=== PATIENT | female | born 1965 | race African-American/Black ===

== ENCOUNTER → 2017-05-28 | Outpatient (CLI) | payer MEDICARE, OTHER ==
[~2017-05-28] MED LIST: AMOXICILLIN500 M1 PO; ASPIR-TRIN325 MG PO; BAYER ASPIRIN325 M1 PO; CLARITIN10 M3; FENOFIBRATE145 M1 PO; HARD NAILS2500 MCG PO; HYDROCODON-ACE1 EAC9 PO; LINZESS145 MCG PO; LINZESS290 MCG PO; LOPRESSOR PO; NEXIUM PO; SIMVASTATIN20 MG PO; VITAMIN C1000 M2 PO; VITAMIN D31000 UNI1; ZOCOR PO; [UNRECOGNIZED DRUG - OTHER] PO
[2017-05-28 11:19] LABS: URINE APPEARANCE CLEAR; URINE BILIRUBIN NEG (NEG); URINE BLOOD NEG (NEG); URINE COLOR DK YELLOW; URINE GLUCOSE NEG (NEG); URINE KETONE TRACE (NEG); URINE LEUKOCYTE ESTERASE TRACE (NEG); URINE NITRATE NEG (NEG); URINE PROTEIN NEG (NEG)
[2017-05-28 11:22] LABS: URINE BACTERIA AUWI NEG (NEGATIVE)
[2017-05-28 11:25] LABS: HEMATOCRIT 36.5 % (35.0-45.0); HEMOGLOBIN 11.4 gm/dL (12.0-16.0); MEAN CELL VOLUME 75.8 FL (83-96); MEAN CORPUSCULAR HEMOGLOBIN 23.6 PG (28-34); MEAN CORPUSCULAR HGB CONC 31.2 g/dL (30-36); MEAN PLATELET VOLUME 10.3 FL (6.5-11.5); RED BLOOD COUNT 4.82 X10e (3.90-5.30)
[2017-05-28 11:31] LABS: CULTURE INDICATED? NO; URINE SOURCE CLEAN CATCH
[2017-05-28 11:33] LABS: URINE SQUAMOUS EPITHELIAL CELL MODERATE /[HPF]
[2017-05-28 11:46] LABS: BUN/CREATININE RATIO 17.5; CALCIUM SERUM 9.8 mg/dL (8.4-10.2); CREATININE SERUM 0.4 mg/dL (0.6-1.4); GLOM FILT RATE Estimated 140.8 mL/min (>60); POTASSIUM 3.5 mmol/L (3.5-5.1)
== END | disposition home or self-care (01) ==
LOC: CAMB 09:39
PROVIDERS: Orthopaedic Surgery
DX: Z01.812 Encounter for preprocedural laboratory examination (principal); S83.206A Unspecified tear of unspecified meniscus, current injury, right knee, initial encounter
CPT/HCPCS: 36415; 80048; 81003; 85027

== ENCOUNTER → 2017-05-29 | Day surgery (SDC) | payer MEDICARE, OTHER ==
--- NOTE | ~2017-05-29 | OR ---
Unit #: [id number] #: [id number] Patient: GEO DOWNING [id number] [address] [id number] MR#: [id number] NAME: GEO DOWNING ROOM: Date of Procedure: 05/29/2017 Admission Date: 05/29/2017 Surgeon: Rina Velazquez M.D. : 1965 Attending Physician: Rina Velazquez M.D. Primary Care Physician: Ryan Padilla M.D. OPERATIVE REPORT PREOPERATIVE DIAGNOSES Torn meniscus and degenerative joint disease. POSTOPERATIVE DIAGNOSES AND FINDINGS 1. 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 2. Grade 2 chondromalacia with focal areas of grade 4 changes lateral compartment. 3. Degenerative tear lateral meniscus. PROCEDURE PERFORMED 1. Arthroscopy, partial lateral meniscectomy, and chondroplasty of right knee. 2. Injection of Depo-Medrol, right knee. HISTORY AND FINDINGS The patient is a 51-year-old, who has been having progressively increasing pain in her right knee with episodes of knee catching and swelling. She had been treated conservatively, but continues to have persistent mechanical symptoms. Her MRI is suggestive of meniscus tear and DJD. She has been having ongoing symptoms in spite of conservative treatment was offered on arthroscopic evaluation. Procedure was explained including risks of anesthesia and complications of surgery like infection, neurovascular injury, stiffness, DVT, residual symptoms, need for further surgery have been explained. She voices understanding and wishes to proceed. DESCRIPTION OF PROCEDURE After induction of general anesthesia, the patient's right knee was examined to varus and valgus stress and was found to be stable in extension and 30 degrees of flexion. The Harvey and the pivot-shift tests were negative. Then, the right knee was prepped and draped in the usual sterile manner. Time-out was called. Operative site was confirmed. After infiltrating the knee joint with 1% Xylocaine with epinephrine. Through a parapatellar tendon approach, arthroscopy was performed. The suprapatellar pouch in the medial and lateral gutter was examined, was found to be normal other than degenerative synovium. Patellofemoral compartment was checked revealed grade 3 to 4 chondromalacic changes with the fraying of the chondral surface. Medial compartment was checked. Medial meniscus was intact to probing and medial compartment was grossly intact other than minimal chondromalacic changes. Intercondylar notch revealed osteophytic formation and intact ACL and PCL. Lateral compartment was checked. Lateral femoral condyles revealed focal chondral Unit #: [id number] #: [id number] Patient: GEO DOWNING defect grade 2 with unstable chondral margins and there was localized grade 4 changes as well. Lateral meniscus revealed degenerative tears using a shaver and a radiofrequency wand. The chondral surface was shaved to a smooth stable surface and the lateral meniscus was trimmed to a stable surface. Then, the patellofemoral compartment was shaved and radiofrequency wand was used to stabilize the chondral margins. Knee joint was thoroughly irrigated. All loose chondral and meniscal fragments were irrigated out and about 80 mg of Depo-Medrol and 20 mL of 0.25% Marcaine was instilled into the knee joint and 5 mL of Marcaine into the operative portal. Wound was closed with 4-0 nylon. Sterile compression dressing was applied. Blood loss approximately 10 mL. The patient received preop antibiotics. No tourniquet was used. POSTOPERATIVE INSTRUCTIONS 1. Ice packs to the right knee and partial weightbearing ambulation with crutches. 2. [place] 7.5 mg p.o. q.6 hours p.r.n. and Coumadin 2.5 mg once daily. She will have a PT/INR on 06/03/2017. 3. She was given a followup appointment to return to my office in 1 week. If any problems to contact me. Dictated by... Anna Ashford/manuel TD: 05/30/2017 05:19 JOB #: [id number] OPERATIVE REPORT Page 1 of 1 X Rina Velazquez MD X PROCEDURE OPERATIVE NOTE
== END | disposition home or self-care (01) ==
LOC: CSUR 06:27
DX: M23.200 Derangement of unspecified lateral meniscus due to old tear or injury, right knee (principal); M22.41 Chondromalacia patellae, right knee; M17.11 Unilateral primary osteoarthritis, right knee; K21.9 Gastro-esophageal reflux disease without esophagitis; E66.9 Obesity, unspecified; J44.9 Chronic obstructive pulmonary disease, unspecified; I10 Essential (primary) hypertension; Z79.82 Long term (current) use of aspirin; Z79.899 Other long term (current) drug therapy; Z90.710 Acquired absence of both cervix and uterus; Z98.890 Other specified postprocedural states; Z68.38 Body mass index [BMI] 38.0-38.9, adult; Z95.1 Presence of aortocoronary bypass graft; Z95.5 Presence of coronary angioplasty implant and graft; Z79.2 Long term (current) use of antibiotics
CPT/HCPCS: J0171; J0690; J1040; J1650; J2250; J2270; J2405; J3010